=== PATIENT | male | born 2000 | race Caucasian/White ===

== ENCOUNTER 2019-09-13 22:28 | Emergency (ER) | payer BC ==
--- NOTE | 2019-09-13 23:07 | ERPHSYRPT ---
- History of Present Illness Time Seen by Provider: 09/13/19 22:55 Historian: patient Exam Limitations: no limitations Patient Subjective Stated Complaint: Pt states he went to [place] last week. While he was there on he started getting sick. Came home Wednesday and has been sick ever since. Was with family and they all had digestive issues. Triage Nursing Assessment: Pt alert and oriented. Ambulated to room and transferred self to bed. Respirations easy and non-labored. Abdomen tender with palpation. Bowels sounds hyperactive Physician History: Patient has had diarrhea for the past 5 days after being in [place] for 8 days prior to the start of the diarrhea. Timing/Duration: day(s) (5) Activities at Onset: none Quality: sharpness (in the anal area after bowel movements) Abdominal Pain Onset Location: other (no localized abdominal pain) Pain Radiation: no radiation Severity of Pain-Max: moderate Severity of Pain-Current: none Modifying Factors: Worsens With: defecating Associated Symptoms: diarrhea, nausea, No back, No chest pain, No diaphoresis, No fever/chills, No fatigue, No headache, No heartburn, No loss of appetite, No neck pain, No rash, No shortness of breath, No syncope, No vomiting, No weakness Previous symptoms: no prior history, no recent treatment, other (patient has no history of hospitalizations, no history of recent antibiotic usage) Allergies/Adverse Reactions: No Known Drug Allergies Allergy (Unverified 09/13/19 22:55) Home Medications: No Reportable Medications [No Reported Medications] 09/13/19 [History] Hx Tetanus, Diphtheria Vaccination/Date Given: Yes (2 years ago) Hx Influenza Vaccination/Date Given: Yes (Aug 2019) Hx Pneumococcal Vaccination/Date Given: No Immunizations Up to Date: Yes - Review of Systems Constitutional: No Fever, No Chills, No Fatigue Eyes: No Eye Pain, No Vision Changes Ears, Nose, & Throat: No Throat Pain, No Throat Swelling, No Painful Swallowing Respiratory: No Cough, No Dyspnea Cardiac: No Chest Pain, No Palpitations, No Syncope Abdominal/Gastrointestinal: Diarrhea, Hematochezia, No Abdominal Pain, No Nausea , No Vomiting, No Hematemesis, No Melena Genitourinary Symptoms: No Dysuria, No Frequency, No Hematuria, No Flank Pain Musculoskeletal: No Arthralgias, No Back Pain, No Neck Pain, No Myalgias Skin: No Pruritis, No Rash Neurological: No Focal Weakness, No Headache, No Parasthesia, No Seizure Psychological: No Anxiety Endocrine: No Polydipsia, No Excessive Sweating Hematologic/Lymphatic: No Easy Bleeding, No Easy Bruising All Other Systems: Reviewed and Negative - Past Medical History Pertinent Past Medical History: Yes Neurological History: Migraines, Other ENT History: No Pertinent History Cardiac History: No Pertinent History Respiratory History: No Pertinent History Endocrine Medical History: No Pertinent History Musculoskeletal History: No Pertinent History GI Medical History: No Pertinent History History: No Pertinent History Psycho-Social History: Depression Male Reproductive Disorders: No Pertinent History Other Medical History: concussions - Past Surgical History Past Surgical History: No - Social History Smoking Status: Never smoker Exposure to second hand smoke: No Drug Use: none Patient Lives Alone: No - Nursing Vital Signs Nursing Vital Signs: Initial Vital Signs Temperature 98.0 F 09/13/19 22:42 Pulse Rate 77 09/13/19 22:42 Respiratory Rate 18 09/13/19 22:42 Blood Pressure 113/71 09/13/19 22:42 O2 Sat by Pulse Oximetry 98 09/13/19 22:42 Pain Scale Pain Intensity 3 - Physical Exam General Appearance: no apparent distress, alert Eye Exam: PERRL/EOMI, eyes nml inspection, No scleral icterus, No pale conjunctivae Ears, Nose, Throat Exam: pharynx normal, moist mucous membranes Neck Exam: normal inspection, non-tender, supple, full range of motion, No meningismus, No Brudzinski, No lymphadenopathy, No midline tenderness Respiratory Exam: normal breath sounds, lungs clear, airway intact, No chest tenderness, No respiratory distress, No diminished breath sounds, No accessory muscle use, No crackles/rales, No rhonchi, No wheezing, No stridor Cardiovascular Exam: regular rate/rhythm, normal heart sounds, capillary refill <2 sec Gastrointestinal/Abdomen Exam: soft, normal bowel sounds, No tenderness, No distention, No mass, No guarding, No rebound Rectal Exam: normal exam, normal rectal tone, other (chaperoned by Radha Guerrero RN ), No hemorrhoids, No black stool, No blood Back Exam: normal inspection, normal range of motion, No CVA tenderness, No vertebral tenderness, No rash Extremity Exam: normal inspection, normal range of motion, pelvis stable, No calf tenderness, No amanda's sign, No pedal edema Neurologic Exam: alert, oriented x 3, cooperative, 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, normal mood/affect, sensation nml, No motor deficits Skin Exam: normal color, warm, dry, No rash, No petechiae, No jaundice, No cyanosis SpO2 Interpretation: normal SpO2: 98 O2 Delivery: Room Air Ordered Tests: Active Orders 24 hr Category Date Time Status IV Insertion STAT Care 09/13/19 22:59 Active NPO (ED) STAT Care 09/13/19 22:59 Active AMYLASE Stat Lab 09/13/19 23:00 Completed CBC W DIFF Stat Lab 09/13/19 23:00 Completed CMP Stat Lab 09/13/19 23:00 Completed LIPASE Stat Lab 09/13/19 23:00 Completed Lactic Acid Stat Lab 09/13/19 22:59 Completed Manual Differential NC Stat Lab 09/13/19 23:00 Completed Occult Blood, Other Screening Stat Lab 09/13/19 23:20 Completed PROTIME WITH INR Stat Lab 09/13/19 23:00 Completed UA W/RFX UR CULTURE Stat Lab 09/14/19 00:07 Completed Medication Summary Discontinued Medications Generic Name Dose Route Start Last Admin Trade Name Freq PRN Reason Stop Dose Admin Hydromorphone HCl 1 mg 09/13/19 22:59 09/13/19 23:22 Hydromorphone 1 Mg/Ml Ampule IV 09/13/19 23:00 Not Given STAT ONE Hydromorphone HCl Confirm 09/13/19 23:09 Hydromorphone 1 Mg/Ml Ampule Administered 09/13/19 23:10 Dose 1 mg .ROUTE .STK-MED ONE Hydromorphone HCl Confirm 09/13/19 23:19 Hydromorphone 1 Mg/Ml Ampule Administered 09/13/19 23:20 Dose 1 mg .ROUTE .STK-MED ONE Sodium Chloride 1,000 mls @ 999 mls/hr 09/13/19 22:59 09/13/19 23:11 Sodium Chloride 0.9% 1000 Ml IV 09/13/19 23:59 999 mls/hr .Q1H1M STA Administration Sodium Chloride Confirm 09/13/19 23:09 Sodium Chloride 0.9% 1000 Ml Administered 09/13/19 23:10 Dose 1,000 mls @ ud .ROUTE .STK-MED ONE Ondansetron HCl 4 mg 09/13/19 22:59 09/13/19 23:10 Zofran 4 Mg/2 Ml Vial IV 09/13/19 23:00 4 mg STAT ONE Administration Ondansetron HCl Confirm 09/13/19 23:08 Zofran 4 Mg/2 Ml Vial Administered 09/13/19 23:09 Dose 4 mg .ROUTE .STK-MED ONE Lab/Rad Data: Laboratory Result Diagrams 09/13/19 23:00 09/13/19 23:00 Laboratory Results 09/14/19 09/13/19 09/13/19 Range/Units 00:07 23:20 23:20 WBC (4.0-10.5) K/mm3 RBC (4.1-5.6) M/mm3 Hgb (12.5-18.0) gm/dl Hct (42-50) % MCV (78-100) fl MCH (26-32) pg MCHC (32-36) g/dl RDW (11.5-14.0) % Plt Count (150-450) K/mm3 MPV (6-9.5) fl Absolute Granulocytes (1.4-6.9) PT (8.83-12.87) SECONDS INR (0.8-3.0) Sodium (137-145) mmol/L Potassium (3.5-5.1) mmol/L Chloride (98-107) mmol/L Carbon Dioxide (22-30) mmol/L Anion Gap (5-15) MEQ/L BUN (9-20) mg/dL Creatinine (0.66-1.25) mg/dL Estimated GFR ML/MIN Glucose (74-106) mg/dL Lactic Acid (0.4-2.0) Calcium (8.4-10.2) mg/dL Total Bilirubin (0.2-1.3) mg/dL AST (17-59) U/L ALT (0-50) U/L Alkaline Phosphatase (38-126) U/L Serum Total Protein (6.3-8.2) g/dL Albumin (3.5-5.0) g/dL Amylase (30-110) U/L Lipase (23-300) U/L Urine Color YELLOW (YELLOW) Urine Appearance CLEAR (CLEAR) Urine pH 6.0 (5-6) Ur Specific [place] 1.015 (1.005-1.025) Urine Protein NEGATIVE (Negative) Urine Ketones NEGATIVE (NEGATIVE) Urine Blood NEGATIVE (0-5) Josué/ul Urine Nitrite NEGATIVE (NEGATIVE) Urine Bilirubin NEGATIVE (NEGATIVE) Urine Urobilinogen NEGATIVE (0-1) mg/dL Ur Leukocyte Esterase NEGATIVE (NEGATIVE) Urine WBC (Auto) NONE (0-5) /HPF Urine RBC (Auto) NONE (0-2) /HPF U Epithel Cells (Auto) NONE (FEW) /HPF Urine Bacteria (Auto) NONE (NEGATIVE) /HPF Urine Mucus (Auto) SLIGHT (NEGATIVE) /HPF Urine Culture Reflexed NO (NO) Urine Glucose NEGATIVE (NEGATIVE) mg/dL Stool Occult Blood NEGATIVE (Negative) Stl C. cayetanensis PCR NEGATIVE (NEGATIVE) Stl Adenov F 40/41 PCR NEGATIVE (NEGATIVE) Stool Astrovirus (PCR) NEGATIVE (NEGATIVE) Stool Cryptosporidium PCR NEGATIVE (NEGATIVE) Stool EAEC (PCR) POSITIVE A (NEGATIVE) Stl E. histolytica PCR NEGATIVE (NEGATIVE) Stl P. shigelloides PCR NEGATIVE (NEGATIVE) Stool Sapovirus (PCR) NEGATIVE (NEGATIVE) St Y.enterocolitica PCR NEGATIVE (NEGATIVE) Stool Vibrio (PCR) NEGATIVE (NEGATIVE) Stl Vibrio cholerae PCR NEGATIVE (NEGATIVE) Stl Norovirus GI/GII PCR NEGATIVE (NEGATIVE) Campylobacter (PCR) NEGATIVE (NEGATIVE) C. difficile (PCR) NEGATIVE (NEGATIVE) Enterotoxigenic E. coli POSITIVE A (NEGATIVE) E.coli Shiga Toxins POSITIVE A (NEGATIVE) Giardia lamblia NEGATIVE (NEGATIVE) Rotavirus A (PCR) NEGATIVE (NEGATIVE) Salmonella (PCR) NEGATIVE (NEGATIVE) Shigella (PCR) NEGATIVE (NEGATIVE) 09/13/19 09/13/19 09/13/19 Range/Units 23:00 23:00 23:00 WBC 7.8 (4.0-10.5) K/mm3 RBC 4.79 (4.1-5.6) M/mm3 Hgb 15.3 (12.5-18.0) gm/dl Hct 43.0 (42-50) % MCV 89.8 (78-100) fl MCH 31.9 (26-32) pg MCHC 35.6 (32-36) g/dl RDW 13.0 (11.5-14.0) % Plt Count 176 (150-450) K/mm3 MPV 11.5 H (6-9.5) fl Absolute Granulocytes 3.71 (1.4-6.9) PT 15.9 H (8.83-12.87) SECONDS INR 1.40 (0.8-3.0) Sodium 142 (137-145) mmol/L Potassium 3.6 (3.5-5.1) mmol/L Chloride 105 (98-107) mmol/L Carbon Dioxide 27 (22-30) mmol/L Anion Gap 13.8 (5-15) MEQ/L BUN 12 (9-20) mg/dL Creatinine 0.71 (0.66-1.25) mg/dL Estimated GFR > 60.0 ML/MIN Glucose 96 (74-106) mg/dL Lactic Acid (0.4-2.0) Calcium 9.6 (8.4-10.2) mg/dL Total Bilirubin 0.60 (0.2-1.3) mg/dL AST 22 (17-59) U/L ALT 16 (0-50) U/L Alkaline Phosphatase 66 (38-126) U/L Serum Total Protein 7.6 (6.3-8.2) g/dL Albumin 4.5 (3.5-5.0) g/dL Amylase 79 (30-110) U/L Lipase 41 (23-300) U/L Urine Color (YELLOW) Urine Appearance (CLEAR) Urine pH (5-6) Ur Specific [place] (1.005-1.025) Urine Protein (Negative) Urine Ketones (NEGATIVE) Urine Blood (0-5) Josué/ul Urine Nitrite (NEGATIVE) Urine Bilirubin (NEGATIVE) Urine Urobilinogen (0-1) mg/dL Ur Leukocyte Esterase (NEGATIVE) Urine WBC (Auto) (0-5) /HPF Urine RBC (Auto) (0-2) /HPF U Epithel Cells (Auto) (FEW) /HPF Urine Bacteria (Auto) (NEGATIVE) /HPF Urine Mucus (Auto) (NEGATIVE) /HPF Urine Culture Reflexed (NO) Urine Glucose (NEGATIVE) mg/dL Stool Occult Blood (Negative) Stl C. cayetanensis PCR (NEGATIVE) Stl Adenov F 40/41 PCR (NEGATIVE) Stool Astrovirus (PCR) (NEGATIVE) Stool Cryptosporidium PCR (NEGATIVE) Stool EAEC (PCR) (NEGATIVE) Stl E. histolytica PCR (NEGATIVE) Stl P. shigelloides PCR (NEGATIVE) Stool Sapovirus (PCR) (NEGATIVE) St Y.enterocolitica PCR (NEGATIVE) Stool Vibrio (PCR) (NEGATIVE) Stl Vibrio cholerae PCR (NEGATIVE) Stl Norovirus GI/GII PCR (NEGATIVE) Campylobacter (PCR) (NEGATIVE) C. difficile (PCR) (NEGATIVE) Enterotoxigenic E. coli (NEGATIVE) E.coli Shiga Toxins (NEGATIVE) Giardia lamblia (NEGATIVE) Rotavirus A (PCR) (NEGATIVE) Salmonella (PCR) (NEGATIVE) Shigella (PCR) (NEGATIVE) 09/13/19 Range/Units 22:59 WBC (4.0-10.5) K/mm3 RBC (4.1-5.6) M/mm3 Hgb (12.5-18.0) gm/dl Hct (42-50) % MCV (78-100) fl MCH (26-32) pg MCHC (32-36) g/dl RDW (11.5-14.0) % Plt Count (150-450) K/mm3 MPV (6-9.5) fl Absolute Granulocytes (1.4-6.9) PT (8.83-12.87) SECONDS INR (0.8-3.0) Sodium (137-145) mmol/L Potassium (3.5-5.1) mmol/L Chloride (98-107) mmol/L Carbon Dioxide (22-30) mmol/L Anion Gap (5-15) MEQ/L BUN (9-20) mg/dL Creatinine (0.66-1.25) mg/dL Estimated GFR ML/MIN Glucose (74-106) mg/dL Lactic Acid 0.9 (0.4-2.0) Calcium (8.4-10.2) mg/dL Total Bilirubin (0.2-1.3) mg/dL AST (17-59) U/L ALT (0-50) U/L Alkaline Phosphatase (38-126) U/L Serum Total Protein (6.3-8.2) g/dL Albumin (3.5-5.0) g/dL Amylase (30-110) U/L Lipase (23-300) U/L Urine Color (YELLOW) Urine Appearance (CLEAR) Urine pH (5-6) Ur Specific [place] (1.005-1.025) Urine Protein (Negative) Urine Ketones (NEGATIVE) Urine Blood (0-5) Josué/ul Urine Nitrite (NEGATIVE) Urine Bilirubin (NEGATIVE) Urine Urobilinogen (0-1) mg/dL Ur Leukocyte Esterase (NEGATIVE) Urine WBC (Auto) (0-5) /HPF Urine RBC (Auto) (0-2) /HPF U Epithel Cells (Auto) (FEW) /HPF Urine Bacteria (Auto) (NEGATIVE) /HPF Urine Mucus (Auto) (NEGATIVE) /HPF Urine Culture Reflexed (NO) Urine Glucose (NEGATIVE) mg/dL Stool Occult Blood (Negative) Stl C. cayetanensis PCR (NEGATIVE) Stl Adenov F 40/41 PCR (NEGATIVE) Stool Astrovirus (PCR) (NEGATIVE) Stool Cryptosporidium PCR (NEGATIVE) Stool EAEC (PCR) (NEGATIVE) Stl E. histolytica PCR (NEGATIVE) Stl P. shigelloides PCR (NEGATIVE) Stool Sapovirus (PCR) (NEGATIVE) St Y.enterocolitica PCR (NEGATIVE) Stool Vibrio (PCR) (NEGATIVE) Stl Vibrio cholerae PCR (NEGATIVE) Stl Norovirus GI/GII PCR (NEGATIVE) Campylobacter (PCR) (NEGATIVE) C. difficile (PCR) (NEGATIVE) Enterotoxigenic E. coli (NEGATIVE) E.coli Shiga Toxins (NEGATIVE) Giardia lamblia (NEGATIVE) Rotavirus A (PCR) (NEGATIVE) Salmonella (PCR) (NEGATIVE) Shigella (PCR) (NEGATIVE) - Progress Progress: improved Progress Note: 09/14/19 01:29 Patient has no abdominal pain on repeat examination. No further diarrhea while in the emergency department. Patient did not have E.Coli 0157:H7 producing bacteria on GI panel and stool sample need sent to see if Shiga toxin 2 was produced, as patient had entertoxigenic E.Coli and Shiga producing E.Coli on the GI panel. Patient will not be giving any anti-diarrheals, antiemetics or antibiotics due to risk of HUS. Reviewed these results with patient, and since he has had already five day course with normal H/H, platelets and creatinine, and lower risk ETEC and STEC at this tiime, patient does not need admitted for continued volume expansion after being hydrated in the emergency department and most likely being at the end of his diarrhea course since it has been five days. Counseled pt/family regarding: lab results, diagnosis, need for follow-up, rad results - Departure Departure Disposition: Home Clinical Impression: Shiga toxin-producing Escherichia coli infection, Enterotoxigenic Escherichia coli infection Diarrhea Qualifiers: Diarrhea type: infectious Qualified Code(s): A09 - Infectious gastroenteritis and colitis, unspecified Condition: Good Critical Care Time: No Referrals: DOCTOR,NO FAMILY [Primary Care Provider] - FINA PARRISH [ACTIVE STAFF] - 09/15/19 (Follow-up to see how diarrhea is doing and need for further lab or IV hydration) Instructions: Acute Abdomen (Belly Pain), Adult (DC), Diarrhea and Traveler's Diarrhea, Adult (DC) Additional Instructions: You have Enterotoxigenic Escherichia coli and Shiga toxin producing Escherichia coli causing your diarrhea. We do not use antibiotics for these as it can make your symptoms worse and potentially increase your risk for another type of disease called HUS. Follow up with your doctor on 09/15/2019 to make certain the diarrhea has resolved and that you're feeling better and to determine the need for any further lab work or IV hydration. Return immediately back to the emergency department if you notice more blood in your stool, feel dizzy, feel extremely fatigued, worsening abdominal pain, vomiting occurs, new fevers, or any other concerning signs or symptoms that were not present at today's emergency department visit for immediate reevaluation in the emergency department. Forms: Work/School Release Form
[2019-09-13 23:08] LABS: Absolute Neutrophil Ct (ANC) 3.71 (1.4-6.9); Hemoglobin 15.3 gm/dl (12.5-18.0); Mean Cell Volume 89.8 fl (78-100); Mean Corpuscular Hemoglobin 31.9 pg (26-32); Mean Corpuscular Hgb Concent. 35.6 g/dl (32-36); Mean Platelet Volume 11.5 fl (6-9.5); Platelet Count 176 K/mm3 (150-450); Red Blood Count 4.79 M/mm3 (4.1-5.6); White Blood Count 7.8 K/mm3 (4.0-10.5)
[2019-09-13] MEDS ORDERED: Zofran 4 MG/2 ML VIAL ONE (23:08)
[2019-09-13] MEDS ORDERED: Sodium Chloride 0.9% 1000 ML 1,000 ML ONE (23:09)
[2019-09-13] MEDS ORDERED: Hydromorphone 1 mg/ml Ampule ONE ×2 (23:09→23:19)
[2019-09-13] MEDS: Zofran 4 MG/2 ML VIAL IV ONE (23:10)
[2019-09-13] MEDS: Sodium Chloride 0.9% 1000 ML 1,000 ML IV STA (23:11)
[2019-09-13 23:15] LABS: INR 1.4 (0.8-3.0); PROTIME 15.9 SECONDS (8.83-12.87)
[2019-09-13 23:19] LABS: ALBUMIN 4.5 g/dL (3.5-5.0); ALKALINE PHOSPHATASE 66 U/L (38-126); AMYLASE 79 U/L (30-110); ANION GAP 13.8 MEQ/L (5-15); BLOOD UREA NITROGEN 12 mg/dL (9-20); CHLORIDE 105 mmol/L (98-107); Calcium 9.6 mg/dL (8.4-10.2); Carbon Dioxide 27 mmol/L (22-30); Creatinine 1 0.71 mg/dL (0.66-1.25); Glucose 96 mg/dL (74-106); LIPASE 41 U/L (23-300); Potassium 3.6 mmol/L (3.5-5.1); SGOT/AST 22 U/L (17-59); SGPT/ALT 16 U/L (0-50); SODIUM 142 mmol/L (137-145); Total Protein 7.6 g/dL (6.3-8.2)
[2019-09-13] MEDS: Hydromorphone 1 mg/ml Ampule IV ONE (23:22)
[2019-09-14 00:16] VITALS: PULSE 88
[2019-09-14 00:39] LABS: Appearance CLEAR (CLEAR); Bilirubin NEGATIVE (NEGATIVE); Blood NEGATIVE Ery/ul (0-5); Glucose NEGATIVE (NEGATIVE); Ketones NEGATIVE (NEGATIVE); Leukocyte Esterase NEGATIVE (NEGATIVE); Mucus SLIGHT /HPF (NEGATIVE); Nitrite NEGATIVE (NEGATIVE); Protein,Urine Dip NEGATIVE (Negative); Specific Gravity 1.015 (1.005-1.025); Urobilinogen NEGATIVE mg/dL (0-1)
[2019-09-14 01:04] LABS: C. Difficile Organism NEGATIVE (NEGATIVE); Campylobacter NEGATIVE (NEGATIVE); Enteroaggregative E.coli POSITIVE (NEGATIVE); Enterotoxigenic E.coli POSITIVE (NEGATIVE); Plesiomonas shigelloides NEGATIVE (NEGATIVE); Salmonella NEGATIVE (NEGATIVE); Vibrio NEGATIVE (NEGATIVE); Vibrio cholerae NEGATIVE (NEGATIVE); Yersinia enterocolitica NEGATIVE (NEGATIVE)
[2019-09-14 01:05] LABS: Adenovirus F 40/41 NEGATIVE (NEGATIVE); Astrovirus NEGATIVE (NEGATIVE); Cryptosporidium NEGATIVE (NEGATIVE); Cyclospora cayentanensis NEGATIVE (NEGATIVE); Entamoeaba histolytica NEGATIVE (NEGATIVE); Giardia lamblia NEGATIVE (NEGATIVE); Norovirus GI/GII NEGATIVE (NEGATIVE); Rotavirus A NEGATIVE (NEGATIVE); Sapovirus NEGATIVE (NEGATIVE)
[2019-09-14 01:07] LABS: Shiga-like toxin prod.E.coli POSITIVE (NEGATIVE)
[2019-09-14 01:35] LABS: ATYPICAL LYMPHS 7 %; BAND 2 % (0.0-2.0); Eosinophil 2 % (0.00-3.0); Lymphocytes 32 % (24-44); Monocyte 2 % (0.0-12.0); Neutrophils 55 % (36.-66.); Platelet Estimate NORMAL (NORMAL); Total Cells Counted 100
[2019-09-14 01:57] VITALS: BP 105/57; O2SAT 97
== END 2019-09-14 01:57 | disposition home or self-care (01) ==
LOC: ED 22:28
DX: A09 Infectious gastroenteritis and colitis, unspecified (principal); B96.23 Unspecified Shiga toxin-producing Escherichia coli [E. coli] [STEC] as the cause of diseases classified elsewhere; B96.29 Other Escherichia coli [E. coli] as the cause of diseases classified elsewhere
CPT/HCPCS: 36000; 36415; 80053; 81001; 82150; 82272; 83605; 83690; 85025; 85610; 87507; 96360; 96374; 99284; J1170; J2405